=== PATIENT | male | born 1995 | race Hispanic/Latino ===

== ENCOUNTER 2023-01-04 21:40 | Emergency (ER) | payer MEDICAID, OTHER ==
[~2023-01-04] VITALS: Ht 188 cm; Wt 128.8 kg
[2023-01-04] MEDS ORDERED: KETOROLAC 30MG VIAL (30MG/ML) IM ONE (23:00)
[2023-01-04] MEDS ORDERED: KETOROLAC 15MG/ML VIAL (15MG/ML) ONE (23:19)
[2023-01-04 23:35] LABS: APPEARANCE,URINE CLEAR (CLEAR); BILIRUBIN,URINE NEGATIVE (NEGATIVE); COLOR,URINE LIGHT-YELLOW (YELLOW); GLUCOSE, URINE (UA) NEGATIVE (NEGATIVE); KETONES,URINE NEGATIVE (NEGATIVE); LEUKOCYTE ESTERASE ,URINE 250 Leu/uL (NEGATIVE); NITRATE,URINE NEGATIVE (NEGATIVE); OCCULT BLOOD,URINE NEGATIVE (NEGATIVE); PROTEIN,URINE 10 mg/dL (NEGATIVE); UROBILINOGEN,URINE 0.2 mg/dL (0.2-1.0)
[2023-01-04 23:38] LABS: ADD UA MICROSCOPIC YES
[2023-01-04 23:40] LABS: BACTERIA,URINE FEW /HPF (None Seen); MUCUS,URINE RARE LPF (None Seen); RBC,URINE 0-1 /HPF (0-1); WBC,URINE 26-50 /HPF (0-1)
[2023-01-05] MEDS ORDERED: CEPH500B PO ×2 (00:12→02:09)
[2023-01-05 00:33] VITALS: BP 142/68; PULSE 70; RESP 18; O2SAT 97
== END 2023-01-05 00:38 | disposition home or self-care (01) ==
LOC: EDH 21:40
DX: R30.0 Dysuria (principal)
CPT/HCPCS: 99284; 87088; 87797; 87486; 81001; 51701; 96372; J1885